=== PATIENT | female | born 1980 | race Caucasian/White ===

== ENCOUNTER → 2016-11-24 | Outpatient (CLI) | payer OTHER ==
[2016-11-24 12:55] LABS: MEAN CORPUSCULAR HEMOGLOBIN 31.2 pg (27.0-33.0); MEAN CORPUSCULAR HGB CONC 33.8 g/dl (32.0-36.5); MEAN CORPUSCULAR VOLUME 92.1 fl (80.0-96.0); RED CELL DISTRIBUTION WIDTH 11.8 % (11.5-14.5); WHITE BLOOD COUNT 4.7 K/mm3 (4.0-10.0)
[2016-11-24 13:17] LABS: ALT/SGPT 19 U/L (12-78); AST/SGOT 14 U/L (15-37); BILIRUBIN,TOTAL 0.6 MG/DL (0.2-1.0); CREATININE FOR GFR 0.64 MG/DL (0.55-1.02); FREE T4 1.47 NG/DL (0.76-1.46); GLOMERULAR FILTRATION RATE > 60.0 (>60); URIC ACID 5.2 MG/DL (2.6-6.0)
== END ==
LOC: M LRY 09:47
PROVIDERS: ATTEND Obstetrics & Gynecology
DX: Z34.81 Encounter for supervision of other normal pregnancy, first trimester (principal); O10.011 Pre-existing essential hypertension complicating pregnancy, first trimester

== ENCOUNTER → 2016-11-30 | Outpatient (REF) | payer OTHER | LOC: M LAB REF 11:23 | PROVIDERS: ATTEND Obstetrics & Gynecology | DX: Z34.81 Encounter for supervision of other normal pregnancy, first trimester (principal); Z36 Encounter for antenatal screening of mother ==

== ENCOUNTER → 2017-01-09 | Outpatient (CLI) | payer OTHER ==
--- NOTE | 2017-01-09 16:03 | REP ---
OB ULTRASOUND: Real-time sonographic evaluation of the gravid uterus is performed. There is a single living intrauterine gestation. The estimated gestational age is 20 weeks 1 day. EDC 05/28/2017. BPD 47 mm = 20 weeks 1 day HC 179 mm = 20 weeks 2 days AC 147 mm = 20 weeks 0 days Femur length 34 mm = 20 weeks 5 days HC/AC ratio 1.22 within normal range. Estimated weight 345 grams. Cervix is closed and measures 3.8 cm in length. heart rate 150 beats per minute. SEEN/GROSSLY UNREMARKABLE Lateral ventricles Yes Posterior fossa Yes Upper lip Yes Four-chamber heart No LVOT No RVOT No Stomach Yes Cord insertion Yes Three vessel cord Yes Kidneys Yes Bladder Yes Spine Yes position: Vertex Placenta: Anterior and grade 0 with no previa or abruption. Amniotic fluid: Within normal limits. Signed by Sukhdeep Lugo MD 01/09/2017 04:30 P
== END ==
LOC: M LRY 13:38
PROVIDERS: ATTEND Obstetrics & Gynecology
DX: Z34.82 Encounter for supervision of other normal pregnancy, second trimester (principal); Z36 Encounter for antenatal screening of mother; Z3A.20 20 weeks gestation of pregnancy

== ENCOUNTER → 2017-02-12 | Outpatient (CLI) | payer OTHER ==
--- NOTE | 2017-02-13 04:54 | REP ---
Clinical: Anatomical evaluation. Comparison: 01/09/2017 . Findings: Examination demonstrates a single live intrauterine in cephalic presentation. motion is identified by technologist. Placenta is noted anteriorly and grade zero without evidence for placenta previa or abruption. Amniotic fluid volume is normal. Cervix measures 3.8 cm in length and appears closed. Gestational age by LMP 24 weeks 0 days with FRANCOIS 06/04/2017 . Gestational age by current measurements 24 weeks 5 days with FRANCOIS 05/30/2017 . FHR equals 147 beats per minute. Estimated weight 733 grams ( 38th percentile). Anatomical assessment demonstrates normal structures including cranium, choroid plexus, cavum, cerebellum/posterior fossa, facial features, lungs, four-chamber heart/ventricular outflow tracts, diaphragm, stomach, cord insertion/three-vessel cord, kidneys/bladder, and extremities. Impression: Single live intrauterine in cephalic presentation demonstrating appropriate interval growth. In conjunction with prior examination anatomical assessment is complete and normal. Nuchal cord cannot be excluded. Signed by Zack Mccarthy MD 02/13/2017 04:46 A
== END ==
LOC: M LRY 13:54
PROVIDERS: ATTEND Obstetrics & Gynecology
DX: Z34.83 Encounter for supervision of other normal pregnancy, third trimester (principal); Z36 Encounter for antenatal screening of mother; Z3A.24 24 weeks gestation of pregnancy

== ENCOUNTER → 2017-02-20 | Outpatient (CLI) | payer OTHER ==
[2017-02-20 11:31] LABS: MEAN CORPUSCULAR HEMOGLOBIN 32.4 pg (27.0-33.0); MEAN CORPUSCULAR HGB CONC 33.4 g/dl (32.0-36.5); MEAN CORPUSCULAR VOLUME 96.9 fl (80.0-96.0); RED CELL DISTRIBUTION WIDTH 12.2 % (11.5-14.5); WHITE BLOOD COUNT 8.5 K/mm3 (4.0-10.0)
== END ==
LOC: M LRY 08:43
PROVIDERS: ATTEND Obstetrics & Gynecology
DX: Z34.83 Encounter for supervision of other normal pregnancy, third trimester (principal); Z36 Encounter for antenatal screening of mother

== ENCOUNTER → 2017-03-05 | Outpatient (CLI) | payer OTHER | LOC: M LAB 07:53 | PROVIDERS: ATTEND Obstetrics & Gynecology | DX: Z34.82 Encounter for supervision of other normal pregnancy, second trimester (principal) ==

== ENCOUNTER → 2017-04-25 | Outpatient (REF) | payer OTHER ==
[~2017-04-25] MED LIST: COLA100C5 PO; IBUP-1022 PO; LABE10TAB PO; LEVO25TA5 PO; OXYC1TAB23 PO; PRENTAB55 PO
== END ==
LOC: M SFHCLERA 15:30
PROVIDERS: ATTEND Family Medicine
DX: J00 Acute nasopharyngitis [common cold] (principal)

== ENCOUNTER → 2017-04-30 | Outpatient (CLI) | payer OTHER ==
--- NOTE | 2017-05-01 00:47 | REP ---
Clinical: well-being preexisting essential hypertension . Comparison: 02/12/2017 . Findings: Examination demonstrates a single live intrauterine in cephalic presentation. motion is identified by technologist. Placenta is noted anteriorly and grade one without evidence for placenta previa or abruption. Amniotic fluid volume is normal. No evidence for nuchal cord. Gestational age by LMP 35 weeks 0 days with FRANCOIS 05/20/2017 . Gestational age by current measurements 36-week 6 days with FRANCOIS 05/22/2017 . FHR equals 136 beats per minute. BPD 9.1 cm 37 weeks 0 days HC 33.4 cm 38 weeks 1 day AC 32.7 cm 36 weeks 4 days FL 7.2 cm 36 weeks 6 days HL 5.9 cm 34 weeks 1 day HC/AC ratio 1.02 Estimated weight 3054 grams ( 67 percentile). Amniotic fluid index equals 19.5 cm (7.7 - 24.9). Impression: Single live advanced gestation in cephalic presentation demonstrating appropriate interval growth. No gross abnormalities are identified. Estimated weight and amniotic fluid volume are normal. Signed by Zack Mccarthy MD 05/01/2017 12:38 A
== END ==
LOC: M LRY 13:53
PROVIDERS: ATTEND Obstetrics & Gynecology
DX: O10.012 Pre-existing essential hypertension complicating pregnancy, second trimester (principal); Z3A.35 35 weeks gestation of pregnancy

== ENCOUNTER → 2017-05-03 | Outpatient (REF) | payer OTHER | LOC: M LAB REF 13:08 | PROVIDERS: ATTEND Obstetrics & Gynecology | DX: O09.523 Supervision of elderly multigravida, third trimester (principal) ==

== ENCOUNTER 2017-05-21 05:03 | Inpatient (IN) | payer OTHER ==
[~2017-05-21] VITALS: Ht 154.9 cm; Wt 83.4 kg
[2017-05-21] VITALS (8 sets, daily range): BP systolic 128–140; BP diastolic 70–90
[~2017-05-21 05:03] MED LIST changes: -COLA100C5 PO; -IBUP-1022 PO; -OXYC1TAB23 PO
[2017-05-21] MEDS: LEVOTHYROXINE 25MCG TABLET (0.025MG) PO SCH (06:00)
[2017-05-21] MEDS ORDERED: BICITRA 30ML SOLN UDC PO ONE (06:00)
[2017-05-21] MEDS ORDERED: LR 1,000 ML IV SCH ×2 (06:00→09:30)
[2017-05-21] MEDS ORDERED: LACTATED RINGER'S 1000 ML IV ONE (06:00)
[2017-05-21 06:09] LABS: MEAN CORPUSCULAR HEMOGLOBIN 31.1 pg (27.0-33.0); MEAN CORPUSCULAR HGB CONC 34.4 g/dl (32.0-36.5); MEAN CORPUSCULAR VOLUME 90.3 fl (80.0-96.0); WHITE BLOOD COUNT 7.6 K/mm3 (4.0-10.0)
[2017-05-21] MEDS ORDERED: MORPHINE PRES-FREE INJ 10 MG/10 ML VIAL (J2274) As Ordered ONE (07:11)
--- NOTE | 2017-05-21 07:15 | ED PDOC ---
Provider Note CC: Scheduled repeat HPI: Patient is a 37 y.o. G 3 P 1 0 1 1 @ 38 weeks gestation with FRANCOIS of 06/04/2017 by LMP and 1st trimester U/S. She presents for scheduled secondary to chronic hypertension, with history of LTCS 1. She denies contractions, SROM, bleeding, discharge, and her last intercourse was in January. She is feeling baby move. Care/Lab: BPs: 112-132/64-82 Total weight gained: O2 sat pounds Rubella: [immune] HIV negative Pap: April 2016, within normal limits GC/CT: Negative, negative Hep BsAg negative, hep C nonreactive Brice: No abnormalities, male fetus VDRL: [Nonreactive] 1 hour GTT: 83 OB U/S: 04/30/2017: SIUP with anterior placenta without previa or abruption, baby vertex POB Hx: Year Gender Gest Delivery Weight 1. 2015 male 40 weeks 8 lbs. 1 oz. PMHx: 1. Chronic hypertension, on labetalol 100 mg 1 tab twice a day 2. Hypothyroidism, levothyroxine 25 mg daily PSHx: 2015: Childhood: Broken leg (left), kidney stones Allergies: NKDA Social Hx: , no tobacco usage, no alcohol usage, and denies illicit drug use Exam: White count 7.6, hemoglobin 11.6, hematocrit 33.7, platelets 212 Afebrile at 98.4 BP: 138/90 HR: 89 RR:16 Abdomen: Baby vertex, LTCS scar is noted Monitor: HR at 140 with moderate variablity, accels with no decelerations, Category 1 Tracing A/P 1. SIUP @38 weeks presents for scheduled repeat secondary to chronic hypertension, history of LTCS 1. Anticipate repeat section. CALDERON DUGAN DO May 21, 2017 07:15
[2017-05-21] MEDS ORDERED: ePHEDrine SULFATE 25 MG/5 ML(5MG/ML) SYRINGE As Ordered ONE (07:17)
[2017-05-21] MEDS ORDERED: OXYTOCIN INJ 10 UNITS/ML VIAL (J2590) As Ordered ONE ×3 (07:17→09:04)
[2017-05-21] MEDS ORDERED: PHENYLephrine HCL 500 MCG/5 ML (100MCG/ML) SYRINGE (J2370) As Ordered ONE (07:18)
[2017-05-21] MEDS: LR 1,000 ML IV SCH ×3 (07:44→23:44)
[2017-05-21] MEDS ORDERED: ONDANSETRON 4MG/2ML VIAL (J2405) IV PRN ×3 (07:45→09:30)
[2017-05-21] MEDS ORDERED: PERCOCET 5MG/325MG TAB PO PRN ×2 (07:45→09:30)
[2017-05-21] MEDS ORDERED: MEASLES,MUMPS,RUBELLA VACCINE INJ (MMR-II) (90707) SC SCH (07:45)
[2017-05-21] MEDS ORDERED: RHOGAM 300 MCG (1500 IU) INJ (J2790) IM SCH (07:45)
[2017-05-21] MEDS ORDERED: PROMETHAZINE 25 MG TAB PO PRN (07:45)
[2017-05-21] MEDS ORDERED: NALBUPHINE HCL 10 MG/ML AMP (J2300) IV PRN ×2 (07:46→09:30)
[2017-05-21] MEDS ORDERED: NALOXONE INJ 0.4 MG/1 ML VIAL (J2310) IV PRN ×2 (07:46)
[2017-05-21] MEDS ORDERED: METOCLOPRAMIDE INJ 10MG/2ML VIAL (J2765) IV PRN (07:46)
[2017-05-21] MEDS: KETOROLAC 30 MG/ML VIAL (J1885) IV SCH ×3 (08:00→20:33)
[2017-05-21] MEDS ORDERED: ONDANSETRON 4MG/2ML VIAL (J2405) As Ordered ONE (08:13)
[2017-05-21] MEDS ORDERED: KETOROLAC 60 MG/2 ML VIAL (J1885) As Ordered ONE (08:13)
[2017-05-21] MEDS: DOCUSATE SODIUM 100 MG CAP PO SCH ×2 (09:00→20:33)
[2017-05-21] MEDS: PRENATAL VITAMINS CHEWABLE TABLET PO SCH (09:00)
[2017-05-21] MEDS: LABETALOL 100 MG TAB PO SCH ×2 (09:00→20:33)
[2017-05-21] MEDS ORDERED: OXYTOCIN DRIP 30 UNITS in APPROPRIATE DILUENT 1 EA IV SCH (09:00)
[2017-05-21] MEDS ORDERED: fentaNYL 100 MCG/2 ML INJECTION (J3010) IV PRN (09:30)
[2017-05-21] MEDS ORDERED: HYDROmorphone HCL 1 MG/ML SYRINGE (J1170) IV PRN (09:30)
[2017-05-21] MEDS: PERCOCET 5MG/325MG TAB PO PRN (12:01)
--- NOTE | 2017-05-21 13:57 | HPE ---
DATE OF ADMISSION: 05/21/2017 CHIEF COMPLAINT: Scheduled repeat (C) section. HISTORY OF PRESENT ILLNESS: The patient is a 37-year-old G3, P1-0-1-1 at 38 weeks' gestation with an estimated date of confinement of 06/04/2017 by last menstrual period and first trimester ultrasound. She presents for a scheduled C section secondary to chronic hypertension, with history of low transverse section times one. She denies contractions, rupture of membranes, bleeding, discharge, and her last intercourse was in January. She is feeling the baby move. LABORATORIES: She is O positive. Group B streptococcus (GBS) was not done due to repeat . She is rubella immune, HIV negative, gonorrhea and chlamydia negative, hepatitis B antigen negative, hepatitis C nonreactive. [place] screening was low risk. [facility] ([facility]) nonreactive. 1-hour glucose tolerance test (GTT) was 83. Urine showed no growth. OBSTETRICS (OB) ULTRASOUND: From 04/30/2017 shows a single intrauterine with an anterior placenta. No previa or abruption. PAST OB HISTORY: 1. 2014: A male, delivered at 40 weeks' gestation via section weighing 8 pounds 1 ounce. 2. 2013: Miscarriage at 7 weeks. PAST MEDICAL HISTORY: 1. Chronic hypertension. 2. Hypothyroidism. MEDICATIONS: - labetalol 100 mg one tablet twice a day - Synthroid 25 mg every day - vitamins PAST SURGICAL HISTORY: 1. 2015: section. 2. Childhood: Broken leg, left lower extremity. 3. Age 17: Kidney stones. ALLERGIES: No known drug allergies. SOCIAL HISTORY: The patient is . Denies tobacco use. Denies alcohol use. Denies drug use. PHYSICAL EXAMINATION: VITAL SIGNS: Temperature is 98.4, pulse is 89, respiratory rate is 16, blood pressure is 138/90. LABORATORIES: White count is 7.6, hemoglobin is 11.6, hematocrit is 33.7, platelets of 212. ABDOMEN: Shows the baby is vertex. MONITOR: Shows heart rate at 140 beats per minute with moderate variability, accelerations, no decelerations, category 1 tracing. Sterile vaginal examination: Cervix was closed, 50% effaced at negative -2 station. monitors shows 145 beats per minute with moderate variability, accelerations, no decelerations. Category 1 tracing. ASSESSMENT AND PLAN: Intrauterine at 38 weeks' gestation, presenting for a scheduled repeat C section. Anticipate scheduled C section. My preceptor for this patient encounter was Alpesh Madsen DO. The preceptor was physically present in the building during the encounter and was fully available. As needed, all aspects of the patient interview, examination, medical decision making process, and medical care plan development were reviewed and approved by the preceptor. The preceptor is aware and concurs with the plan as stated in the body of this note and will attest to such by his/her cosignature. CARLITO
[2017-05-22] VITALS (7 sets, daily range): BP systolic 113–138; BP diastolic 63–78
[2017-05-22] MEDS: KETOROLAC 30 MG/ML VIAL (J1885) IV SCH (02:08)
[2017-05-22] MEDS: LEVOTHYROXINE 25MCG TABLET (0.025MG) PO SCH (05:55)
[2017-05-22 06:47] LABS: MEAN CORPUSCULAR HEMOGLOBIN 31.4 pg (27.0-33.0); MEAN CORPUSCULAR HGB CONC 34.1 g/dl (32.0-36.5); MEAN CORPUSCULAR VOLUME 91.9 fl (80.0-96.0); WHITE BLOOD COUNT 10.1 K/mm3 (4.0-10.0)
[2017-05-22] MEDS: LR 1,000 ML IV SCH (07:44)
[2017-05-22] MEDS: DOCUSATE SODIUM 100 MG CAP PO SCH ×2 (07:52→21:01)
[2017-05-22] MEDS: LABETALOL 100 MG TAB PO SCH ×2 (07:52→21:01)
[2017-05-22] MEDS: PRENATAL VITAMINS CHEWABLE TABLET PO SCH (07:52)
[2017-05-22] MEDS ORDERED: OXYC1TAB23 PO (08:55)
[2017-05-22] MEDS ORDERED: IBUP-1022 PO (08:56)
[2017-05-22] MEDS ORDERED: COLA100C5 PO (08:57)
[2017-05-22] MEDS: IBUPROFEN 800 MG TAB PO SCH ×2 (11:00→18:39)
[2017-05-22] MEDS: PERCOCET 5MG/325MG TAB PO PRN (20:14)
[2017-05-23] MEDS: IBUPROFEN 800 MG TAB PO SCH ×2 (02:29→08:15)
[2017-05-23] MEDS: LEVOTHYROXINE 25MCG TABLET (0.025MG) PO SCH (05:52)
[2017-05-23 06:34] VITALS: BP 129/77
[2017-05-23] MEDS: LABETALOL 100 MG TAB PO SCH (08:14)
[2017-05-23] MEDS: DOCUSATE SODIUM 100 MG CAP PO SCH (08:14)
[2017-05-23] MEDS: PRENATAL VITAMINS CHEWABLE TABLET PO SCH (08:14)
== END 2017-05-23 10:42 | disposition home or self-care (01) | DRG 766 ==
LOC: M LDI 05:03 → M OBS 11:05 → EDSTATUS 05-28 07:30
PROVIDERS: ADMIT Obstetrics & Gynecology; ATTEND Obstetrics & Gynecology
PROC: 10D00Z1 Extraction of Products of Conception, Low, Open Approach (ICD-10-PCS; principal; 2017-05-21 07:30)
DX: O10.02 Pre-existing essential hypertension complicating childbirth (principal); Z37.0 Single live birth; Z3A.38 38 weeks gestation of pregnancy; O34.211 Maternal care for low transverse scar from previous cesarean delivery; E03.9 Hypothyroidism, unspecified; Z79.899 Other long term (current) drug therapy; O99.284 Endocrine, nutritional and metabolic diseases complicating childbirth

== ENCOUNTER → 2017-08-09 | Outpatient (REF) | payer OTHER ==
[~2017-08-09] MED LIST changes: +COLA100C5 PO; +IBUP-1022 PO; +OXYC1TAB23 PO
== END ==
LOC: M LAB REF 18:01
PROVIDERS: ATTEND Obstetrics & Gynecology
DX: Z12.4 Encounter for screening for malignant neoplasm of cervix (principal)

== ENCOUNTER → 2017-08-15 | Outpatient (REF) | payer OTHER ==
[2017-08-15 17:42] LABS: MEAN CORPUSCULAR HEMOGLOBIN 28.4 pg (27.0-33.0); MEAN CORPUSCULAR VOLUME 88.9 fl (80.0-96.0); PLATELET COUNT, AUTOMATED 317 10^3/uL (150-450); WHITE BLOOD COUNT 5.6 10^3/uL (4.0-10.0)
[2017-08-15 17:59] LABS: FREE T4 1.44 NG/DL (0.76-1.46)
== END ==
LOC: M SFHCLERA 11:59
PROVIDERS: ATTEND Family Medicine
DX: E03.9 Hypothyroidism, unspecified (principal); I10 Essential (primary) hypertension

== ENCOUNTER → 2018-01-08 | Outpatient (CLI) | payer OTHER ==
[2018-01-08 11:43] LABS: HEMATOCRIT 42.7 % (36.0-47.0); HEMOGLOBIN 14.1 g/dl (12.0-16.0); MEAN CORPUSCULAR HEMOGLOBIN 29.4 pg (27.0-33.0); MEAN CORPUSCULAR VOLUME 89.1 fl (80.0-96.0); PLATELET COUNT, AUTOMATED 299 10^3/uL (150-450); RED BLOOD COUNT 4.79 10^6/uL (4.00-5.40); RED CELL DISTRIBUTION WIDTH 12.3 % (11.5-14.5); WHITE BLOOD COUNT 4.4 10^3/uL (4.0-10.0)
[2018-01-08 12:23] LABS: ALBUMIN 4.1 GM/DL (3.2-5.2); ALBUMIN/GLOBULIN RATIO 1.11 (1.00-1.93); ALKALINE PHOSPHATASE 85 U/L (45-117); ALT/SGPT 18 U/L (12-78); ANION GAP 7 MEQ/L (8-16); AST/SGOT 12 U/L (7-37); BILIRUBIN,TOTAL 0.5 MG/DL (0.2-1.0); BLOOD UREA NITROGEN 9 MG/DL (7-18); CARBON DIOXIDE LEVEL 28 MEQ/L (21-32); CHLORIDE LEVEL 104 MEQ/L (98-107); CREATININE FOR GFR 0.75 MG/DL (0.55-1.30); FREE T4 1.46 NG/DL (0.76-1.46); GLOMERULAR FILTRATION RATE > 60.0 (>60); GLUCOSE, FASTING 95 MG/DL (70-100); POTASSIUM SERUM 4.6 MEQ/L (3.5-5.1); SODIUM LEVEL 139 MEQ/L (136-145); TOTAL PROTEIN 7.8 GM/DL (6.4-8.2)
== END ==
LOC: M LRY 09:55
DX: E03.9 Hypothyroidism, unspecified (principal); I10 Essential (primary) hypertension; Z13.0 Encounter for screening for diseases of the blood and blood-forming organs and certain disorders involving the immune mechanism; E55.9 Vitamin D deficiency, unspecified
CPT/HCPCS: 84443

== ENCOUNTER → 2018-04-05 | Outpatient (REF) | payer OTHER ==
[2018-04-05 15:10] LABS: CHLAMYDIA DNA AMPLIFICATION NEGATIVE (NEGATIVE); GC DNA AMPLIFICATION NEGATIVE (NEGATIVE)
== END ==
LOC: M LAB REF 12:53
DX: R30.0 Dysuria (principal); Z11.3 Encounter for screening for infections with a predominantly sexual mode of transmission

== ENCOUNTER → 2018-06-27 | Outpatient (CLI) | payer OTHER ==
[2018-06-27 18:21] LABS: FREE T4 1.27 NG/DL (0.76-1.46)
[2018-06-27 18:23] LABS: TOTAL 25(OH) VITAMIN D 40.5 NG/ML (30.0-100.0)
[2018-06-27 20:06] LABS: BASO % 0.4 % (0.0-1.0); EOS % 0.7 % (0.0-3.0); HEMATOCRIT 42.5 % (36.0-47.0); HEMOGLOBIN 13.6 g/dl (12.0-15.5); IMMATURE GRANULOCYTE % 0.4 % (0-3.0); LYMPH # 1.5 10^3/uL (1.5-4.5); LYMPH % 27.6 % (24.0-44.0); MEAN CORPUSCULAR HEMOGLOBIN 29.2 pg (27.0-33.0); MEAN CORPUSCULAR VOLUME 91.4 fl (80.0-96.0); MONO # 0.4 10^3/uL (0.0-0.8); NEUTROPHILS # 3.5 10^3/uL (1.8-7.7); NEUTROPHILS % 62.9 % (36.0-66.0); PLATELET COUNT, AUTOMATED 282 10^3/uL (150-450); RED BLOOD COUNT 4.65 10^6/uL (4.00-5.40); RED CELL DISTRIBUTION WIDTH 12.3 % (11.5-14.5); WHITE BLOOD COUNT 5.5 10^3/uL (4.0-10.0)
== END ==
LOC: M LRY 10:24
DX: E03.9 Hypothyroidism, unspecified (principal); I10 Essential (primary) hypertension; E55.9 Vitamin D deficiency, unspecified
CPT/HCPCS: 84443

== ENCOUNTER → 2018-09-24 | Outpatient (CLI) | payer OTHER ==
[2018-09-24 16:32] LABS: ANION GAP 6 MEQ/L (8-16); BLOOD UREA NITROGEN 8 MG/DL (7-18); CALCIUM LEVEL 8.7 MG/DL (8.5-10.1); CARBON DIOXIDE LEVEL 28 MEQ/L (21-32); CHLORIDE LEVEL 106 MEQ/L (98-107); CREATININE FOR GFR 0.63 MG/DL (0.55-1.30); GLOMERULAR FILTRATION RATE > 60.0 (>60); GLUCOSE, FASTING 88 MG/DL (70-100); POTASSIUM SERUM 4.9 MEQ/L (3.5-5.1); SODIUM LEVEL 140 MEQ/L (136-145)
== END ==
LOC: M LRY 10:37
DX: I10 Essential (primary) hypertension (principal)
CPT/HCPCS: 80048